=== PATIENT | female | born 1940 | race Caucasian/White ===

== ENCOUNTER 2017-02-23 19:21 | Emergency (ER) | payer MEDICARE ==
[~2017-02-23] VITALS: Ht 167.6 cm; Wt 105.8 kg
[2017-02-23 19:26] VITALS: BP 136/71; PULSE 88; RESP 18; TEMP 99.8; O2SAT 88
[2017-02-23] MEDS ORDERED: SODIUM CHLOR 0.9% 1000 ML INJ 1,000 ML IV SCH (19:40)
[2017-02-23] MEDS ORDERED: SODIUM CHLORIDE 0.9% FLUSH 10 ML FLUSH IV FLUSH PRN (19:45)
[2017-02-23] MEDS ORDERED: ONDANSETRON HCL 4 MG/2 ML VIAL IVP ONE (19:45)
[2017-02-23 20:03] LABS: AUTOMATED NEUTROPHIL # 2.6 TH/MM3 (1.8-7.7); BASOPHIL % 0.2 % (0.0-2.0); EOSINOPHIL % 0.8 % (0.0-4.0); HEMATOCRIT 37.6 % (35.0-46.0); HEMO FLAGS DIFF FINAL; LYMPH % 15.2 % (9.0-44.0); LYMPHOCYTE # 0.6 TH/MM3 (1.0-4.8); MEAN CELL VOLUME 88.6 FL (80.0-100.0); MEAN CORPUSCULAR HEMOGLOBIN 28.7 PG (27.0-34.0); MEAN CORPUSCULAR HGB CONC 32.4 % (32.0-36.0); MONO % 13.7 % (0.0-8.0); NEUT % 70.1 % (16.0-70.0); PLATELET COUNT 155 TH/MM3 (150-450); RED BLOOD COUNT 4.25 MIL/MM3 (4.00-5.30); RED CELL DISTRIBUTION WIDTH 12.9 % (11.6-17.2); WHITE BLOOD COUNT 3.7 TH/MM3 (4.0-11.0)
[2017-02-23 20:03] LABS: BLOOD, URINE TRACE (NEG); GLUCOSE,URINE NEG (NEG); KETONE, URINE NEG (NEG); NITRITE,URINE NEG (NEG); PH, URINE 6.5 (5.0-8.5)
[2017-02-23 20:05] LABS: URINE COLOR YELLOW (YELLW/STRAW)
[2017-02-23 20:08] VITALS: BP 120/82; PULSE 84; RESP 20; TEMP 101; O2SAT 92
[2017-02-23 20:09] LABS: COMMENT (UR) CULT NOT INDICATED; CULTURE IF INDICATED CULT NOT INDICATED; RBC, URINE 0-3 /hpf (0-3); WBC, URINE 0-2 /hpf (0-5)
[2017-02-23 20:11] LABS: CHLORIDE 96 MEQ/L (98-107); POTASSIUM 3.8 MEQ/L (3.5-5.1); SODIUM (NA) 135 MEQ/L (136-145)
[2017-02-23 20:16] LABS: ANION GAP 4 MEQ/L (5-15); BICARBONATE 35.1 MEQ/L (21.0-32.0); BLOOD UREA NITROGEN 6 MG/DL (7-18)
[2017-02-23 20:17] VITALS: BP 130/82; PULSE 85; RESP 20; O2SAT 94
[2017-02-23 20:19] LABS: ALT (GPT) 25 U/L (10-53); AST (GOT) 20 U/L (15-37); GLOMERULAR FILTRATION RATE 97 ML/MIN (>89)
[2017-02-23 20:20] LABS: TOTAL BILIRUBIN ADULT 0.7 MG/DL (0.2-1.0)
[2017-02-23 20:22] LABS: ALKALINE PHOSPHATASE 64 U/L (45-117)
--- NOTE | 2017-02-23 20:25 | RADHPO ---
EXAM DATE/TIME: 02/23/2017 20:05 [place] COMPARISON: No previous studies available for comparison. INDICATIONS : Vomiting, fever and twitching. MEDICAL HISTORY : None. SURGICAL HISTORY : None. ENCOUNTER: Initial ACUITY: 3 days PAIN SCORE: 3/10 LOCATION: Bilateral chest FINDINGS: The lungs are clear without infiltrate, nodule, or mass. There is no appreciable pleural effusion fo r technique. Heart and mediastinum are unremarkable. CONCLUSION: No acute cardiopulmonary disease. Oleksandr Connor MD on February 23, 2017 at 20:24 Board Certified Radiologist. This report was verified electronically.
[2017-02-23] MEDS ORDERED: ACETAMINOPHEN 325 MG TAB PO ONE (20:30)
[2017-02-23] MEDS ORDERED: SODIUM CHLOR 0.9% 1000 ML INJ 1,000 ML IV ONE (20:45)
--- NOTE | 2017-02-23 20:45 | PD ---
HPI . Diarrhea Chief Complaint: General Weakness Time Seen by Provider: 19:40 Travel History International Travel<30 days: No Contact w/Intl Traveler<30days: No Traveled to known affect area: No History of Present Illness HPI Patient presents with nausea, vomiting and diarrhea that started 3 days ago. She has just traveled here from [place] with her family car. The illness started off she was in route. It started as diarrhea followed by both vomiting and diarrhea. She is now having dry heaves. She is not taking very much by mouth. She started having shaking spells today. Patient denies any cough or difficulty breathing. She denies any urinary tract symptoms such as dysuria, frequency or urgency. She denies abdominal pain. She has been exposed to family members with similar symptoms. [id number]: GI system DURATION: 3 days CONTEXT: Positive exposure ASSOCIATED SYMPTOMS: Fever and shakes PFSH Social History Tobacco Use: No Allergies-Medications (Allergen,Severity, Reaction): Coded Allergies: No Known Allergies (Unverified , 02/23/17) Reported Meds & Prescriptions Reported Meds & Active Scripts Active Reported Claritin (Loratadine) 10 Mg Cap 10 Mg PO DAILY Aspirin 81 Mg Chew 81 Mg CHEW DAILY Lasix (Furosemide) 40 Mg Tab 40 Mg PO DAILY Amlodipine (Amlodipine Besylate) 10 Mg Tab 10 Mg PO DAILY Alprazolam 0.25 Mg Tab 0.25 Mg PO Q8H PRN Carvedilol 6.25 Mg Tab 6.25 Mg PO BID Atorvastatin (Atorvastatin Calcium) 40 Mg Tab 40 Mg PO HS Protonix (Pantoprazole Sodium) 40 Mg Tab 40 Mg PO DAILY Prilosec (Omeprazole) 20 Mg Cap 20 Mg PO DAILY Plavix (Clopidogrel Bisulfate) 75 Mg Tab 75 Mg PO DAILY Paxil (Paroxetine HCl) 20 Mg Tab 20 Mg PO DAILY Zofran (Ondansetron HCl) 4 Mg Tab 4 Mg PO Q6HR PRN Review of Systems Except as stated in HPI: all other systems reviewed are Neg General / Constitutional: Positive: Fever, Chills, Other (shaking) Cardiovascular: No: Chest Pain or Discomfort Respiratory: No: Cough, Shortness of Breath Gastrointestinal: Positive: Nausea, Vomiting, Diarrhea, No: Abdominal Pain Genitourinary: No: Urgency, Frequency, Dysuria Neurologic: Positive: Weakness Physical Exam Narrative GENERAL: Patient is awake and alert and fully oriented. SKIN: Warm and dry. HEAD: Atraumatic. Normocephalic. EYES: Pupils equal and round. 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 It is partially opaque. ENT: No nasal bleeding or discharge. Mucous membranes pink but dry. NECK: Trachea midline. Neck is supple. CARDIOVASCULAR: Regular rate and rhythm. Heart sounds are normal. RESPIRATORY: No accessory muscle use. Lungs sound clear with full air movement throughout. GASTROINTESTINAL: Abdomen soft, non-tender, nondistended. MUSCULOSKELETAL: No obvious deformities. No edema. NEUROLOGICAL: Awake and alert. No obvious cranial nerve deficits. Motor grossly within normal limits. Normal speech. PSYCHIATRIC: Appropriate mood and affect; insight and judgment normal. Data Data Last Documented VS Vital Signs Date Time Temp Pulse Resp B/P Pulse Ox O2 Delivery O2 Flow Rate FiO2 02/23/17 20:19 84 20 94 Nasal Cannula 2 02/23/17 20:17 130/82 02/23/17 20:08 101.0 Orders Complete Blood Count With Diff (02/23/17 19:40) Comprehensive Metabolic Panel (02/23/17 19:40) Lactic Acid (02/23/17 19:40) Urinalysis - C+S If Indicated (02/23/17 19:40) Iv Access Insert/Monitor (02/23/17 19:40) Ecg Monitoring (02/23/17 19:40) Oximetry (02/23/17 19:40) Ondansetron Inj (Zofran Inj) (02/23/17 19:45) Sodium Chlor 0.9% 1000 Ml Inj (Ns 1000 M (02/23/17 19:40) Sodium Chloride 0.9% Flush (Ns Flush) (02/23/17 19:45) Electrocardiogram (02/23/17 19:40) Chest, Single Ap (02/23/17 19:40) Acetaminophen (Tylenol) (02/23/17 20:30) Blood Culture (02/23/17 20:23) Sodium Chlor 0.9% 1000 Ml Inj (Ns 1000 M (02/23/17 20:45) Labs Laboratory Tests Test 02/23/17 02/23/17 19:30 19:45 White Blood Count 3.7 TH/MM3 Red Blood Count 4.25 MIL/MM3 Hemoglobin 12.2 GM/DL Hematocrit 37.6 % Mean Corpuscular Volume 88.6 FL Mean Corpuscular Hemoglobin 28.7 PG Mean Corpuscular Hemoglobin 32.4 % Concent Red Cell Distribution Width 12.9 % Platelet Count 155 TH/MM3 Mean Platelet Volume 7.6 FL Neutrophils (%) (Auto) 70.1 % Lymphocytes (%) (Auto) 15.2 % Monocytes (%) (Auto) 13.7 % Eosinophils (%) (Auto) 0.8 % Basophils (%) (Auto) 0.2 % Neutrophils # (Auto) 2.6 TH/MM3 Lymphocytes # (Auto) 0.6 TH/MM3 Monocytes # (Auto) 0.5 TH/MM3 Eosinophils # (Auto) 0.0 TH/MM3 Basophils # (Auto) 0.0 TH/MM3 CBC Comment DIFF FINAL Differential Comment Sodium Level 135 MEQ/L Potassium Level 3.8 MEQ/L Chloride Level 96 MEQ/L Carbon Dioxide Level 35.1 MEQ/L Anion Gap 4 MEQ/L Blood Urea Nitrogen 6 MG/DL Creatinine 0.60 MG/DL Estimat Glomerular Filtration 97 ML/MIN Rate Random Glucose 123 MG/DL Lactic Acid Level 0.5 mmol/L Calcium Level 8.4 MG/DL Total Bilirubin 0.7 MG/DL Aspartate Amino Transf 20 U/L (AST/SGOT) Alanine Aminotransferase 25 U/L (ALT/SGPT) Alkaline Phosphatase 64 U/L Total Protein 6.7 GM/DL Albumin 3.3 GM/DL Urine Color YELLOW Urine Turbidity CLEAR Urine pH 6.5 Urine Specific [place] 1.010 Urine Protein TRACE mg/dL Urine Glucose (UA) NEG mg/dL Urine Ketones NEG mg/dL Urine Occult Blood TRACE Urine Nitrite NEG Urine Bilirubin NEG Urine Leukocyte Esterase NEG Urine RBC 0-3 /hpf Urine WBC 0-2 /hpf Microscopic Urinalysis Comment CULT NOT INDICATED MDM Medical Decision Making Medical Screen Exam Complete: Yes Emergency Medical Condition: Yes Interpretation(s) EKG shows a sinus rhythm with a rate of 84. No ST segment elevation or depression. Differential Diagnosis Differential diagnosis of fever includes but is not limited to viral illness, strep throat, otitis media, pneumonia, sepsis, UTI Narrative Course Patient presents with fever, nausea, vomiting and diarrhea. CBC & BMP Diagram 02/23/17 19:30 LFTs are normal. Lactic acid is 0.5. Her UA is negative. The patient is making clear yellow urine. She does not appear to be dehydrated. Her temperature has come down with Tylenol. Sepsis Criteria SIRS Criteria (2 or more): Temp > 100.9 or < 96.8, WBC > 62666, < 4000 or > 10 % bands Diagnosis Primary Impression: Gastroenteritis Additional Impression: Fever Qualified Code: R50.9 - Fever, unspecified fever cause Patient Instructions: Gastroenteritis (DC), General Instructions Additional Instructions: Tylenol or ibuprofen as needed for fever. Lots of fluids. Med/Other Pt SpecificInfo: Prescription(s) given Scripts Promethazine (Phenergan)25 Mg Tab25 Mg PO Q6H PRN (Nausea/Vomiting) #10 TAB Ref 0 Prov:Cindy Montes De Oca MD 02/23/17 Disposition: 01 DISCHARGE HOME Condition: Stable Cindy Montes De Oca MD Feb 23, 2017 20:45
[2017-02-23] MEDS ORDERED: ATOR40TA16 PO (21:14)
[2017-02-23] MEDS ORDERED: PLAV75TA29 PO (21:14)
[2017-02-23] MEDS ORDERED: CARV6.252 PO (21:14)
[2017-02-23] MEDS ORDERED: ZOFR4TAB PO (21:14)
[2017-02-23] MEDS ORDERED: FURO1TAB60 PO (21:14)
[2017-02-23] MEDS ORDERED: AMLO10TA2 PO (21:14)
[2017-02-23] MEDS ORDERED: ALPR0.25 PO (21:14)
[2017-02-23] MEDS ORDERED: PAXI20TA PO (21:14)
[2017-02-23] MEDS ORDERED: ASPI81CH CHEW (21:14)
[2017-02-23] MEDS ORDERED: PRIL20CA9 PO (21:14)
[2017-02-23] MEDS ORDERED: PROT40TA PO (21:14)
[2017-02-23 21:16] VITALS: BP 135/58; PULSE 82; RESP 20; O2SAT 94
[2017-02-23] MEDS ORDERED: CLAR10CA3 PO (21:16)
[2017-02-23 21:48] VITALS: BP 140/63; PULSE 80; RESP 24; TEMP 99.4; O2SAT 94
[2017-02-23] MEDS ORDERED: PROM25TA5 PO (21:51)
[2017-02-23 22:22] VITALS: BP 140/63; TEMP 99.4
--- NOTE | 2017-02-24 10:34 | EKG ---
Date Performed: 02/23/2017 Time Performed: 19:49:44 PTAGE: 76 years EKG: Sinus rhythm . Normal ECG NO PREVIOUS TRACING DOCTOR: Johanny Panda Interpretating Date/Time 02/24/2017 10:27:29
== END 2017-02-23 22:26 | disposition home or self-care (01) ==
LOC: PHED 19:21
DX: K52.9 Noninfective gastroenteritis and colitis, unspecified (principal); H54.41 Blindness, right eye, normal vision left eye; Z79.02 Long term (current) use of antithrombotics/antiplatelets; Z79.899 Other long term (current) drug therapy
CPT/HCPCS: 71010; 80053; 81001; 83605; 85025; 87040; 93005; 96374; 99284; J2405; J7030